=== PATIENT | male | born 1960 | race Caucasian/White ===

== ENCOUNTER 2025-01-06 21:49 | Emergency (ER) | payer MEDICARE, OTHER ==
[~2025-01-06] VITALS: Ht 188 cm; Wt 76.9 kg
[2025-01-06 21:54] VITALS: O2SAT 99
[2025-01-06] MEDS ORDERED: COR25 MT (23:19)
[2025-01-06] MEDS ORDERED: RIVA10TA MT (23:19)
[2025-01-06] MEDS ORDERED: FLEC100T2 MT (23:19)
[2025-01-06] MEDS: CARVEDILOL 12.5MG TABLET PO ONE (23:41)
[2025-01-06] MEDS: FLECAINIDE 50MG TABLET PO SCH (23:41)
[2025-01-06] MEDS: RIVAROXABAN 10 MG TABLET PO SCH (23:42)
[2025-01-06 23:43] VITALS: BP 137/82; PULSE 64; RESP 18; TEMP 36.6; O2SAT 99
== END 2025-01-06 23:44 | disposition home or self-care (01) ==
LOC: ER 21:49
DX: I48.91 Unspecified atrial fibrillation (principal); I25.2 Old myocardial infarction; Z76.0 Encounter for issue of repeat prescription; Z88.2 Allergy status to sulfonamides; Z88.5 Allergy status to narcotic agent
CPT/HCPCS: 99284